=== PATIENT | female | born 2000 | race Caucasian/White ===

== ENCOUNTER 2022-04-15 17:46 | Emergency (ER) | payer OTHER, SELFPAY ==
[2022-04-15 17:59] VITALS: BP 113/67; PULSE 75; RESP 18; TEMP 36.6; O2SAT 98; BMI 20.9
--- NOTE | 2022-04-15 18:07 | CRLHL7_ITS ---
For Patients: As a result of the Century Cures Act, medical imaging exams and procedure reports are released immediately into your electronic medical record. You may view this report before your referring provider. If you have questions, please contact your health care provider. Indication: Injury and pain Technique: Right wrist 3 view Comparison: None Findings: Bones: Alignment is normal. No fractures or bone lesions. Joint spaces: Unremarkable. Soft tissues: Unremarkable. Impression: No sign of acute injury in the right wrist. Dictated by Mitchell Peres MD @ 04/15/2022 6:45:00 PM (Electronically Signed)
--- NOTE | 2022-04-15 18:39 | ED.GENADULT ---
HPI - General Adult General Chief complaint: Extremity Pain/Injury, Upper Stated complaint: Possible broken R wrist Time Seen by Provider: 04/15/22 18:06 Source: patient Mode of arrival: ambulatory Limitations: no limitations History of Present Illness HPI narrative: 21-year-old female coming in today complaining of right wrist pain after falling while snowboarding. She states that she fell backwards on outstretched hands. She has pain at the lateral wrist just proximal to the base of the thumb. She denies any other injury. Did not hit her head or lose consciousness. Related Data Allergies Allergy/AdvReac Type Severity Reaction Status Date / Time No Known Drug Allergies Allergy Verified 04/15/22 17:58 Review of Systems Status of ROS: Reports: 10 or more systems reviewed and unremarkable except as noted in History and below [facility] Social History Smoking Status: Never smoker Do you use any of these nicotine containing products: None Second hand tobacco smoke exposure: No How often do you have a drink containing alcohol: never AUDIT-C Alcohol total score: 0 Non-prescribed substance use: denies use service: No Exam Narrative: Exam Narrative: Well-nourished well-developed patient in no acute distress. Alert and oriented. Answers questions appropriately. Mood and affect are appropriate. Thoughts are goal oriented and rational. No tangential or magical thinking noted. Patient speaks in full sentences without needing to catch her breath. HEENT: Normocephalic atraumatic. Pupils are equally round reactive to light. Extraocular muscles are intact. Conjunctivae are moist without any icterus noted. Extremities: Right wrist has significant swelling over the lateral aspect with tenderness to palpation at the snuffbox and just proximal to the snuffbox. She has normal radial pulse. Normal movement at the fingers. There is no broken skin, erythema or ecchymosis noted. Skin: Well perfused without any obvious rashes. Const: Vital Signs, click to edit/add: Vital Signs - 24 hr 04/15/22 17:59 Temperature 98 F Pulse Rate [Pulse Oximeter] 75 Respiratory Rate 18 Blood Pressure [Le ft Upper Arm] 113/67 Pulse Oximetry 98 Oxygen Delivery Me thod Room Air Course Course Hospital Course: X-ray of the right wrist was done: This was unremarkable. Despite the unremarkable x-ray I am concerned about the possibility of a scaphoid fracture given the location of her pain and swelling. Because of this we did go ahead and proceed with a CT scan of the area which showed the radial fracture and bone marrow and hemorrhaging into the 2nd and 3rd extensor tendon sheaths. Unclear of the significance of this I did consult with orthopedics-spoke to Anthony Rucker, who at this time recommended a thumb cock-up splint in follow-up with orthopedics next week. Vital Signs Vital signs: Initial Vital Signs Temperature 98 F 04/15/22 17:59 Temperature Source Temporal Artery Scan 04/15/22 17:59 Pulse Rate 75 04/15/22 17:59 Pulse Rhythm 04/15/22 17:59 Respiratory Rate 18 04/15/22 17:59 Blood Pressure 113/67 04/15/22 17:59 Blood Pressure Mean 82 04/15/22 17:59 Blood Pressure Position Supine 04/15/22 17:59 Pulse Oximetry 98 04/15/22 17:59 Oxygen Delivery Method 04/15/22 17:59 Vital Signs Temperature 98 F 04/15/22 17:59 Pulse Rate 75 04/15/22 17:59 Respiratory Rate 18 04/15/22 17:59 Blood Pressure 113/67 04/15/22 17:59 Pulse Oximetry 98 04/15/22 17:59 Oxygen Delivery Method 04/15/22 17:59 Temperature 98 F 04/15/22 17:59 Pulse Rate 75 04/15/22 17:59 Respiratory Rate 18 04/15/22 17:59 Blood Pressure 113/67 04/15/22 17:59 Pulse Oximetry 98 04/15/22 17:59 Oxygen Delivery Method 04/15/22 17:59 Medical Decision Making [facility] Narrative Medical decision making narrative: 21-year-old female with a wrist injury, radial fracture and abnormal findings on CT of unclear significance. Patient having lot of pain at the base of the thumb. Because of this she is placed symptom cock-up splint and information given follow-up with orthopedic surgery next week. Imaging Data Wrist x-ray: Attestation: I have reviewed the pertinent imaging results. Radiologist's impression: Bones: Alignment is normal. No fractures or bone lesions. Joint spaces: Unremarkable. Soft tissues: Unremarkable. Impression: No sign of acute injury in the right wrist. CT wrist: Attestation: I have reviewed the pertinent imaging results. Radiologist's impression: CT right wrist without contrast. COMPARISON: None. FINDINGS: Layering acute hemorrhage and fat in the 2nd and 3rd extensor compartment tendon sheaths (axial series 3, image 70). Very subtle transverse lucency in the distal radius approximately at or just distal to the level of the physeal scar (coronal series 5, image 34). No fracture identified otherwise. Distal radial articular surface is intact. No dislocation. No arthrosis. Bone island in the capitate. IMPRESSION: Hemorrhage and fat likely from bone marrow in the 2nd and 3rd extensor compartment tendon sheaths highly suggestive of an associated fracture. Fracture is likely of the distal radius where there is very subtle transverse lucency just proximal to the distal articular surface. Discharge Plan Discharge Clinical Impression: Injury of wrist, Distal radial fracture Patient Disposition: Home, Self-Care Condition: Stable Additional Instructions: Wear splint at all times. You will need to follow-up with orthopedics: Call ortho @ [phone] to set up an appointment early next week. Okay to use Tylenol as needed for discomfort. Follow Up/Referrals: Krystyna Fisher MD [Primary Care Provider] - Stand Alone Forms: [facility] Info Instructions
--- NOTE | 2022-04-15 19:00 | CRLHL7_ITS ---
For Patients: As a result of the Cures Act, medical imaging exams and procedure reports are released immediately into your electronic medical record. You may view this report before your referring provider. If you have questions, please contact your health care provider. HISTORY: Wrist pain and swelling. Evaluate for scaphoid fracture. TECHNIQUE: CT right wrist without contrast. COMPARISON: None. FINDINGS: Layering acute hemorrhage and fat in the 2nd and 3rd extensor compartment tendon sheaths (axial series 3, image 70). Very subtle transverse lucency in the distal radius approximately at or just distal to the level of the physeal scar (coronal series 5, image 34). No fracture identified otherwise. Distal radial articular surface is intact. No dislocation. No arthrosis. Bone island in the capitate. IMPRESSION: Hemorrhage and fat likely from bone marrow in the 2nd and 3rd extensor compartment tendon sheaths highly suggestive of an associated fracture. Fracture is likely of the distal radius where there is very subtle transverse lucency just proximal to the distal articular surface. Please note that all CT scans at this facility use dose modulation, iterative reconstruction, and/or weight-based dosing when appropriate to reduce radiation dose to as low as reasonably achievable. Dictated by Philip Adkins MD @ 04/15/2022 8:20:14 PM (Electronically Signed)
== END 2022-04-15 20:59 | disposition home or self-care (01) ==
PROVIDERS: Emergency Provider Family Medicine; PCP Family Medicine
DX: S52.91XA Unspecified fracture of right forearm, initial encounter for closed fracture (principal); V00.311A Fall from snowboard, initial encounter
CPT/HCPCS: 29125; 73110; 73200; 99284

== ENCOUNTER 2023-11-25 13:59 | Emergency (ER) | payer OTHER, SELFPAY ==
[2023-11-25 15:12] VITALS: BP 123/83; PULSE 88; RESP 18; TEMP 36.1; O2SAT 98
--- NOTE | 2023-11-26 14:13 | PM.FPPN ---
Progress Note: A&P Assessment and plan (1) Folliculitis: Status: Acute Plan Patient will be prescribed 2% Nizoral and 0.1% triamcinolone to the rashes, would also give Septra DS. Follow up with 1 week with primary care if not improving. Subjective Subjective Date Seen: 11/25/23 Interval history: Patient presents to ER with a rash in her groin and her left forehead. Boyfriend had a similar rash. She has been swimming in the river and this is a occurs in her right groin primarily. Itches slightly, she is concerned about this. Tried some topical antifungal I believe. Exam Narrative: Exam Narrative: Vital signs within normal limits Folliculitis noted in the right groin and a small what looks like fungal dermatitis on the left eyebrow area. She has some folliculitis in her abdominal wall as well. Const: Vital Signs, click to edit/add: Vital Signs - 24 hr 11/25/23 15:12 Temperature 96.9 F L Pulse Rate [Left P ulse Oximeter] 88 Respiratory Rate 18 Blood Pressure [Ri ght Upper Arm] 123/83 Pulse Oximetry 98 Oxygen Delivery Me thod Room Air
--- NOTE | 2023-12-01 11:21 | ED_ITS ---
HPI - General Adult General Chief complaint: Skin/Abscess/Foreign Body Stated complaint: Rash in upper right thigh Time Seen by Provider: 11/25/23 15:46 History of Present Illness HPI narrative: 22-year-old female presents with a rash in her groin abdomen and 1 spot over left eyebrow. Been outside doing some swimming, her boyfriend has similar rash. Related Data Previous Rx's ?Medication ?Instructions ?Recorded albuterol sulfate 90 mcg/actuation 2 puff inhalation Q6H PRN 04/30/23 aerosol inhaler shortness of breath or wheezing #8.5 grams Allergies Allergy/AdvReac Type Severity Reaction Status Date / Time No Known Drug Allergies Allergy Verified 11/24/22 14:06 Review of Systems Narrative: No history of similar skin problems PFSH PFSH Medical History Sinusitis ?J32.9 - Chronic sinusitis, unspecified (ICD-10) Nipple discharge in female ?N64.52 - Nipple discharge (ICD-10) Intermittent asthma (05/16/12) ?J45.20 - Mild intermittent asthma, uncomplicated (ICD-10) Disorder of paranasal sinus ?J34.9 - Unspecified disorder of nose and nasal sinuses (ICD-10) Depression ?F32.A - Depression, unspecified (ICD-10) 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, unspecified (ICD-10) 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) Surgical History Levan teeth extracted ?K08.409 - Partial loss of teeth, unspecified cause, unspecified class (ICD- 10) History of adenoidectomy ?Z90.89 - Acquired absence of other organs (ICD-10) Family History Other Attention deficit hyperactivity disorder Depression Social History Narrative: no secondhand smoke exposure Smoking Status: Never smoker Do you use any of these nicotine containing products: None Second hand tobacco smoke exposure: No How often do you have a drink containing alcohol: never AUDIT-C Alcohol total score: 0 Non-prescribed substance use: denies use service: No Exam Narrative: Exam Narrative: Rash over the left eyebrow looks like a little bit a fungal component, there is folliculitis on the abdomen and right groin area primarily Course Vital Signs Vital signs: Initial Vital Signs Temperature 96.9 F L 11/25/23 15:12 Temperature Source Temporal Artery Scan 11/25/23 15:12 Pulse Rate 88 11/25/23 15:12 Pulse Rhythm Regular 11/25/23 15:12 Respiratory Rate 18 11/25/23 15:12 Blood Pressure 123/83 11/25/23 15:12 Blood Pressure Mean 96 11/25/23 15:12 Blood Pressure Position Sitting 11/25/23 15:12 Pulse Oximetry 98 11/25/23 15:12 Oxygen Delivery Method Room Air 11/25/23 15:12 Vital Signs Temperature 96.9 F L 11/25/23 15:12 Pulse Rate 88 11/25/23 15:12 Respiratory Rate 18 11/25/23 15:12 Blood Pressure 123/83 11/25/23 15:12 Pulse Oximetry 98 11/25/23 15:12 Oxygen Delivery Method Room Air 11/25/23 15:12 Temperature 96.9 F L 11/25/23 15:12 Pulse Rate 88 11/25/23 15:12 Respiratory Rate 18 11/25/23 15:12 Blood Pressure 123/83 11/25/23 15:12 Pulse Oximetry 98 11/25/23 15:12 Oxygen Delivery Method Room Air 11/25/23 15:12 Medical Decision Making MDM Narrative Medical decision making narrative: Will cover the patient with antibiotic, would recommend follow-up in a week to make sure this is resolved improving. Call if questions or concerns. This dictation occurred after the patient visit and I am anticipating that she got at topical antifungal in the form of ketoconazole as well as a mild steroid cream. Discharge Plan Discharge Clinical Impression: Folliculitis Patient Disposition: Home, Self-Care Condition: Stable Instructions: Folliculitis (ED) Additional Instructions: Apply medication as a prescribed, recommend antibiotic as prescribed, recheck with regular doctor not improving the next 5-7 days. Activity Level: No Restrictions Discharge Diet: Regular Prescriptions: No Action albuterol sulfate 90 mcg/actuation HFA aerosol inhaler 2 puff inhalation Q6H PRN (Reason: shortness of breath or wheezing) Qty: 8.5 12RF Follow Up/Referrals: Krystyna Fisher MD [Primary Care Provider] - Stand Alone Forms: [employer] Info Instructions
== END 2023-11-25 16:16 | disposition home or self-care (01) ==
LOC: ED 16:13
PROVIDERS: Emergency Provider Family Medicine; PCP Family Medicine
DX: L73.9 Follicular disorder, unspecified (principal)
CPT/HCPCS: 99283

== ENCOUNTER 2024-04-29 14:44 | Outpatient (CLI) | payer OTHER, SELFPAY | END 2024-04-29 14:45 | disposition home or self-care (01) | LOC: NFLDREF 05-01 03:37 | PROVIDERS: PCP Family Medicine; Referring Provider Family Medicine; Visit Provider Emergency Medicine | DX: N30.00 Acute cystitis without hematuria (principal) | CPT/HCPCS: 87086 ==

== ENCOUNTER 2025-01-13 11:29 | Outpatient (CLI) | payer OTHER, SELFPAY ==
[2025-01-13 15:51] LABS: Chlamydia DNA Amplified* NOT DETECTED (No Detected); GC DNA Amplified* NOT DETECTED (No Detected)
[2025-01-19 09:06] LABS: Pap Test Digital Imaging Done
== END 2025-01-13 11:30 | disposition home or self-care (01) ==
PROVIDERS: PCP Family Medicine; Visit Provider Physician Assistant
DX: Z11.3 Encounter for screening for infections with a predominantly sexual mode of transmission (principal); Z12.4 Encounter for screening for malignant neoplasm of cervix
CPT/HCPCS: 87491; 87591; 87624; 87625; 88141; 88142; 88175